=== PATIENT | male | born 2000 | race Caucasian/White ===

== ENCOUNTER 2025-01-04 07:52 | Emergency (ER) | payer OTHER, SELFPAY ==
[2025-01-04 08:08] VITALS: BP 149/85; PULSE 65; RESP 18; TEMP 36.6; O2SAT 100; BMI 30.1
[2025-01-04 08:09] LABS: Microscopic, Urine URINE MICROSCOPIC (MICROSCOPIC)
--- NOTE | 2025-01-04 08:09 | ED_ITS ---
Discharge Plan Disposition Patient Disposition: Home, Self-Care Prescriptions Prescriptions: New amoxicillin-pot clavulanate 875-125 mg tablet 1 tab PO BID 10 Days Qty: 20 0RF Referrals Follow up/Referrals: Mari Cota DO [Primary Care Provider, Family Practice] - See instructions Activity Restrictions/Add. Instructions Additional Instructions/Restrictions: As discussed your exam was objectively normal from an emergency standpoint however given your symptoms we will treat you for a possible middle ear infection in addition to possible infected epidermoid or sebaceous cyst. Given the fact that your symptoms are very similar to sebaceous cysts that you have had in the past I recommend you follow back up with your surgeon to discuss the possibility of elective intervention. Clinical Impressions Clinical Impression: Ear pain, right, Sebaceous cyst Stand Alone Forms Stand Alone Forms: Work/School Release Discharge ED Provider: Teddy Beltran General Adult HPI General Stated complaint: Right ear pain, diarrhea vomiting Time Seen by Provider: 01/04/25 07:58 History of Present Illness HPI narrative: Patient is a 24-year-old presented with multiple complaints. First the patient complains of nausea vomiting diarrhea but states that symptoms have essentially resolved and is not the main reason that they have come to the emergency department today. Patient states that there has been right ear pain as well as some cysts behind both ears. The patient has a history of sebaceous cyst that have had to be electively operated on twice in the past. Symptoms very similar today. No fevers or chills or any other significant symptoms. Related Data Previous Rx's ?Medication ?Instructions ?Recorded amoxicillin 875 mg-potassium 1 tab PO BID 10 days #20 tabs 01/04/25 clavulanate 125 mg tablet Allergies Allergy/AdvReac Type Severity Reaction Status Date / Time No Known Allergies Allergy Verified 01/04/25 08:06 [facility] Disclaimer: The information contained in this section may have been updated after the patient was seen, as this information can be updated by other users. Social History Smoking Status: Unknown if ever smoked alcohol intake: never current occupational status: other Travel in the last 8 weeks?: None ROS Obtained: Yes All systems reviewed & no additional complaints except as documented Physical Exam General General appearance: alert ENT ENT exam: Present normal exam Neck Neck exam: Present other (Significant tenderness behind both the ears no large or obvious infected cysts or abscesses noted) Respiratory Respiratory exam: Present normal lung sounds bilaterally Cardiovascular Cardiovascular exam: Present regular rate Neurological Exam Neurological exam: Present alert and oriented X3 Medical Decision Making Medical Records Screening: Per USPSTF and CDC recommendations, given the prevalence of disease in our region, it is our hospital?s policy to screen for HIV and viral Hepatitis for all patients aged 18 and over and those with ongoing risk factors. Jerzy Inquiry Pt receiving controlled substance: No Orders (Tests/Meds): ORDERS Category Date Time Status UA [Urinalysis and Microscopic] Stat Lab 01/04/25 07:58 Received Medical Decision Narrative: Patient with above history and physical. Given the fact that the patient has an objectively normal exam but states this is very similar to epidermoid inclusion cyst that had become infected in the past we will go ahead and cover with Augmentin which would treat both the otitis media and possible superficial skin infection. I have advised the patient follow back up with the surgeon who electively remove the last 1. No other emergent medical condition was identified today patient was discharged in stable condition. Critical Care Critical Care Time Critical Care Time: No
[2025-01-04 08:16] VITALS: BP 130/78; PULSE 80; RESP 20; TEMP 36.8; O2SAT 98
[2025-01-04 08:16] LABS: Appearance,Urine CLEAR (Clear); Bilirubin,Urine Negative (Negative); Blood, Urine Negative (Negative); Color,Urine YELLOW (Yellow); Glucose,Urine (UA) Negative (Negative); Ketones,Urine Negative (Negative); Leukocyte Esterase,Urine Negative (Negative); Nitrate,Urine Negative (Negative); PH,Urine 6.5 (5.0-8.5); Protein,Urine Negative (Negative); Specific Gravity, Urine 1.025 (1.005-1.030)
--- OUTSIDE RECORDS SUMMARY | 2025-01-04 08:22 | XMS_ITS | Clinical Summary ---
Author Organization [facility] Address [address] [place] [address] Phone Care Team Providers Care Capacity Planning Manager Name Role Phone Rell NOLASCO, [facility] [phone] Conditions or Problems Problem Name Problem Code Onset Date Status Entry Date Provider Comment Standard Description Annotate OVERWEIGHT 645247222 (SNOMED CT) Active Nilay Vera NP Overweight STABLE BURST FRACTURE OF T11-T12 VERTEBRA, SEQUELA S22.081S (ICD-10-CM) Active Kari Hester Stable burst fracture of T11-T12 vertebra, sequela Medications Medication Instructions Start Date Stop Date Generic Name [facility] Provider ONDANSETRON HCL 4 MG TABS TAKE 1 TO 2 TABS BY MOUTH EVERY 6 HOURS NEEDED FOR NAUSEA/VOMITING ONDANSETRON HCL 54486916929 Nilay Vera NP FLUTICASONE PROPIONATE 50 MCG/ACT SUSP FLUTICASONE PROPIONATE [id number] Nilay Vera NP AMOXICILLIN 500 MG CAPS AMOXICILLIN [id number] Nilay Vera NP BUPROPION HCL ER (XL) 150 MG [id number] BUPROPION HCL [id number] Nilay Vera NP IBUPROFEN 600 MG TABS TAKE 1 TABLET BY MOUTH EVERY 6 HOURS IBUPROFEN [id number] Nilay Vera NP TRAMADOL HCL 50 MG TABS TAKE 1 TABLET EVERY 6 HOURS NEEDED FOR PAIN TRAMADOL HCL [id number] Nilay Vera NP RANITIDINE HCL 300 MG ORAL TABLET RANITIDINE HCL [id number] Nilay Vera NP OMEPRAZOLE 40 MG CPDR OMEPRAZOLE [id number] Nilay Vera NP LORATADINE 10 MG TABS LORATADINE [id number] [facility] FREELANCE ART DIRECTOR KETOROLAC TROMETHAMINE 10 MG TABS KETOROLAC TROMETHAMINE [id number] [facility] FREELANCE ART DIRECTOR AMITRIPTYLINE HCL 100 MG TABS AMITRIPTYLINE HCL [id number] [facility] F[employer]ELANCE ART DIRECTOR Medications Administered No information available. Allergies, Adverse Reactions, Alerts Observed no known allergies at Results No information available. Plan of Care Type Date Detail Pending order X-Ray Lumbar AP & Lateral Pending order X-Ray Lumbar AP & Lateral Pending order X-Ray Thoracic A P & Lateral Procedures Code Procedure Name Date Entry Date [id number] Flu Shot Declined 4 Vital Signs Date Name Value Unit Description BMI (Body Mass Index) 29.05 kg/m2 Bod y Mass Index (Ratio) Height 66 [in_us] height E&M Weight Measured 180 [lb_av] weight E& M Weight Measured 180 [lb_av] weight E& M BP Diastolic 78 mm[Hg] blood pressu re, diastolic BP Systolic 132 mm[Hg] blood pressur e, systolic Immunizations No information available. Advance Directives No information available.
--- OUTSIDE RECORDS SUMMARY | 2025-01-04 08:22 | XMS_ITS | Clinical Summary ---
Author Organization [facility] Address [facility] [place] [address] Care Team Providers Care Division Chair Name Role Phone Andrade Rojas MD Primary Care Provider [phone] Source Comments This information has been disclosed to you from confidential records protectedfrom disclosure by state law. You shall make no further disclosure of thisinformation without the specific, written, and informed release of theindividual to whom it pertains, or as otherwise permitted by law. A generalauthorization for the release of medical or other information is not sufficientfor the purposes of therelease of HIV test results or diagnoses. [id number] Allergies No known active allergies Medications estradiol (ESTRACE) 2 MG tablet Take 2 mg by mouth 2 times a day. Active spironolactone (ALDACTONE) 50 MG tablet Take 50 mg by mouth 2 times a day. Active amitriptyline (ELAVIL) 100 MG tablet Take 100 mg by mouth at bedtime. Active bacitracin zinc ointment Apply topically 2 times a day. 425 g 5 9 Active oxyCODONE (ROXICODONE) 5 MG immediate release tablet Take 5 mg by mouth every 6 hours as needed for Pain. Active gabapentin (NEURONTIN) 300 MG capsuleIndicati ons:Dog bite, subsequent encounter TAKE DIRECTED UP TO 3 CAPSULES BY MOUTH 3 TIMES A DAY 270 capsule 9 Active Active Problems Problem Noted Date Diagnosed Date Dog bite 09/07/2018 Immunizations Immunization Administration Dates Next Due tdap 08/17/2018 Family History Medical History Relation Comments Cancer Other Diabetes Other Relation Status Comments Other Social History Tobacco Use Types Packs/Day Years Used Date Smoking Tobacco: Never Smokeless Tobacco: Never Alcohol Use Standard Drinks/Week Comments No 0 (1 standard drink = 0.6 oz pur e alcohol) PHQ-2 Answer Date Recorded PHQ-2 Score 1 05/02/2019 Sex and Gender Information Value Date Recorded Sex Assigned at Not on file Legal Sex Male 5:59 PM EST Gender Identity Not on file Sexual Orientation Not on file Last Filed Vital Signs Vital Sign Reading Time Taken Comments Blood Pressure 111/72 09/29/2018 10:45 AM EDT Pulse 59 09/29/2018 10:45 AM EDT Temperature 36.9 C (98.5 F) 09/29/2018 10:45 AM EDT Respiratory Rate 16 09/29/2018 10:4 5 AM EDT Oxygen Saturation 96% 09/29/2018 10: 45 AM EDT Inhaled Oxygen Concentration 96% 10:45 AM EDT Weight 78.4 kg (172 lb 13.5 oz) 09/22/2018 1:30 PM EST Height 165 cm (5' 4.96 ) 09/22/2018 1:30 PM EST Body Mass Index 28.8 09/22/2018 1:30 PM EST Plan of Treatment [place] [address] [employer] OTHER * Guarantor: DAVID AUSTIN Account Type Relation to Patient Date of Phone Billing Address Personal/Family Care Teams Division Chair Relationship Specialty Start Date End Date Andrade Rojas MD [address] [place] [address] PCP - General Family Medicine 08/17/18
--- OUTSIDE RECORDS SUMMARY | 2025-01-04 08:22 | XMS_ITS | Clinical Summary ---
Author Organization [facility] Address [address] [place] [id number] Care Team Providers Care Prototype Sewer Name Role Phone Andrade Rojas M.D. Primary Care Provider + Source Comments [facility] is fully rolled out with thefollowing exceptions:General Clinical Research [facility] Allergies No known active allergies Medications sertraline (ZOLOFT) 50 MG tabletIndicatio ns:Blood in stool Take 50 mg by mouth every evening. Active amitriptyline (ELAVIL) 25 MG tabletIndicatio ns:Blood in stool Take 50 mg by mouth at bedtime as needed. Active omeprazole (PriLOSEC OTC) 20 MG delayed release tabletIndicatio ns:Blood in stool Take 1 Tab (20 mg total) by mouth 2 times a day Should not be chewed or crushed. 60 Tab 2 11/30/2014 Active escitalopram (LEXAPRO) 10 MG tablet Take 10 mg by mouth every evening. Active busPIRone (BUSPAR) 10 MG tablet Take 10 mg by mouth 2 times a day. Active Active Problems Problem Noted Date Diagnosed Date Encopresis 11/13/2015 Blood in stool 11/30/2014 Vomiting 11/30/2014 Abdominal pain, left upper quadrant 11/30/2014 Loss of weight 11/30/2014 Sebaceous cyst 03/23/2012 Family History Medical History Relation Name Comments Obesity/Overweight Father Diabetes Maternal Grandfather Hypertension Maternal Grandfather Crohn's Disease Maternal Grandmother Thyroid Disease Maternal Grandmother Cancer Maternal Uncle Obesity/Overweight Mother Other Mother Hypertension Paternal Grandfather Diabetes Sister Relation Name Status Comments Father Maternal Grandfather Maternal Grandmother Maternal Uncle Mother Paternal Grandfather Sister Social History Tobacco Use Types Packs/Day Years Used Date Smoking Tobacco: Some Days Alcohol Use Standard Drinks/Week Comments Not Asked 0 (1 standard drink = 0.6 oz pur e alcohol) Sex and Gender Information Value Date Recorded Sex Assigned at Not on file Legal Sex Male 5:38 AM EST Gender Identity Not on file Sexual Orientation Not on file Last Filed Vital Signs Vital Sign Reading Time Taken Comments Blood Pressure 118/68 11/13/2015 8:55 AM EDT Pulse 58 11/13/2015 8:55 AM EDT Temperature 36.9 C (98.4 F) 12/07/2014 4:09 PM EDT Respiratory Rate 20 12/07/2014 4:09 PM EDT Oxygen Saturation 100% 12/06/2014 2:01 PM EDT Inhaled Oxygen Concentration - - Weight 86.7 kg (191 lb 2.2 oz) 11/13/2015 8:55 A M EDT Height 168.7 cm (5' 6.42 ) 11/13/2015 8:55 AM ED T Body Mass Index 30.46 11/13/2015 8:55 AM EDT Plan of Treatment Health Maintenance Due Date Last Done Comments MMR IMMUNIZATION (1 of 1 - S tandard series) 1999 DTAP/Tdap/Td IMMUNIZATION (1 - Tdap) 2005 VARICELLA IMMUNIZATION (1 of 2 - 13+ 2-dose series) 2011 HPV IMMUNIZATION (1 - Male 3 -dose series) 2013 HEPATITIS B IMMUNIZATION (1 of 3 - 19+ 3-dose series) 2017 COVID-19 Vaccine (1 - 2023-2 5 season) 2024 AMB SEASONAL FLU VACCINE (Se ason Ended) 2025 HIB IMMUNIZATION Aged Out No longer e ligible based on patient's age to complete this topic IPV IMMUNIZATION Aged Out No longer e ligible based on patient's age to complete this topic MCV4 IMMUNIZATION Aged Out No longer eligible based on patient's age to complete this topic MENINGOCOCCAL B VACCINE Aged Out No l onger eligible based on patient's age to complete this topic PNEUMOCOCCAL IMMUNIZATION Aged Out No longer eligible based on patient's age to complete this topic Respiratory Syncytial Virus (RSV) <20mo Aged Out No longer eligible b ased on patient's age to complete this topic Insurance Member Subscriber Plan / Payer (Ef fective 2014-Present) Name:Leandro De Souza Relation to Subscriber:Self Name:Leandro De Souza Payer ID:[id number] (NAIC) Group ID:Not on file Type:O Medicaid Address: [facility] Care Teams Prototype Sewer Relationship Specialty Start Date End Date Andrade Rojas M.D. [address] [address] [employer] [place] [address] PCP - General External Family Practice 11/21/14
--- OUTSIDE RECORDS SUMMARY | 2025-01-04 08:22 | XMS_ITS | Clinical Summary ---
Author Organization [facility] Address [address] [place] [address] Care Team Providers Care Hadoop Application Developer Name Role Phone Andrade Rojas MD Primary Care Provider [phone] Allergies No known active allergies Social History Tobacco Use Types Packs/Day Years Used Date Smoking Tobacco: Never Assessed Sex and Gender Information Value Date Recorded Sex Assigned at Not on file Legal Sex Male 6:53 PM EDT Gender Identity Not on file Sexual Orientation Not on file Last Filed Vital Signs Vital Sign Reading Time Taken Comments Blood Pressure 109/54 11/25/2021 10:30 AM EDT Pulse 65 11/25/2021 10:30 AM EDT Temperature 36.6 C (97.9 F) 11/25/2021 7:40 AM EDT Respiratory Rate 21 11/25/2021 10:30 AM EDT Oxygen Saturation 98% 11/25/2021 10:30 AM EDT Inhaled Oxygen Concentration - - Weight 77.1 kg (170 lb) 11/25/2021 7:40 AM EDT Height - - Body Mass Index - - Plan of Treatment Health Maintenance Due Date Last Done Comments [facility]-Depression Screening 1998 [facility]-/Child/Adol SDOH Screenings 1998 [facility]- SDOH Screenings 02/08/2016 [facility]-Adult SDOH Screenings 02/08/2016 HPV Vaccines (3 - Male 3-dose series) 06/03/2019 03/11/2019, 11/29/2015 [id number] Vaccine ( season) 2024 [facility]-Influenza Vaccine (Season Ended) 2025 [facility]-DTaP,Tdap,and Td Vaccines (8 - Td or Tdap) 08/17/2028 08/17/2018, 03/28/2009, 11/15/2002, Additional history exists [facility]-Zoster Vaccines (1 of 2) 02/08/2048 11/29/2015, 12/15/2001, 11/25/2001 [facility]-HIB Vaccines Completed 08/13/2000, , 1998, Additional history exists [facility]-Hepatitis B Vaccines Completed 003, 08/13/2000, 08/13/2000, Additional history exists [facility]-IPV Vaccines Completed 11/15/2002, 07/1998, 1998, Additional history exists [facility]-Varicella Vaccines Completed 6, 12/15/2001, 11/25/2001 [facility]-Hepatitis A Vaccines Completed 03/11/2019, 11/17 [facility]-Pneumococcal Vaccine: Pediatrics (0 to 5 Years) and At-Risk Patients (6 to 49 Years) Aged Out No longer eligible based on patient's age to complete this topic [facility]-Rotavirus Vaccines Aged Out No lo nger eligible based on patient's age to complete this topic [place] [place] [address] Care Teams Hadoop Application Developer Relationship Specialty Start Date End Date Andrade [place]jas [place] [address] [place] [address] PCP - General 11/30/20
[2025-01-04 08:30] LABS: Squamous Epithelial Cell,Urine Occasional #/hpf (0-5); WBC,Urine Occasional #/hpf (0-3)
[2025-01-04 08:33] LABS: Bacteria,Urine Trace /lpf
== END 2025-01-04 08:23 | disposition home or self-care (01) ==
PROVIDERS: Ophthalmology; Emergency Provider Student in an Organized Health Care Education/Training Program; PCP Student in an Organized Health Care Education/Training Program
DX: H92.01 Otalgia, right ear (principal); L72.3 Sebaceous cyst
CPT/HCPCS: 81001; 99283